=== PATIENT | female | born 1965 | race Caucasian/White ===

== ENCOUNTER → 2016-03-14 | Outpatient (CLI) | payer OTHER | END | disposition home or self-care (01) | LOC: NUC 06:39 | DX: R10.11 Right upper quadrant pain (principal) | CPT/HCPCS: 78227; A9537; J2805 ==

== ENCOUNTER 2016-10-05 13:24 | Emergency (ER) | payer OTHER ==
[~2016-10-05] VITALS: Ht 157.5 cm; Wt 74.4 kg
[2016-10-05 14:20] LABS: HEMATOCRIT 37.6 % (36.0-46.0); MCH 30.6 PG (29.0-34.0); MCHC 34.3 G/DL (30.0-36.0); MCV 89.1 FL (83-99); MEAN PLAT.VOLUME 10.9 uM^3 (9.5-12.4); PLATELET COUNT 318 K/uL (156-360); RBC DIS.WIDTH-CV 12.3 % (11.8-14.6); RBC DIS.WIDTH-SD 39.9 % (39-53); RED BLOOD COUNT 4.22 M/uL (3.80-5.20); WHITE BLOOD COUNT 7.5 K/uL (4.1-10.2)
[2016-10-05 14:32] LABS: CHLORIDE 104 mEq/L (99-109); POTASSIUM 4.1 mEq/L (3.7-5.4); SODIUM 138 mEq/L (136-147)
[2016-10-05 14:35] LABS: GLUCOSE 93 mg/dL (70-99)
[2016-10-05 14:36] LABS: ANION GAP 9 MEQ/L (2-14)
[2016-10-05 14:37] LABS: TOTAL BILIRUBIN 0.5 mg/dL (0.0-1.0)
[2016-10-05 14:38] LABS: ALKALINE PHOSPHATASE 57 IU/L (3-129); GFR ESTIMATE (CALCULATED) > 59 mL/min/
[2016-10-05 14:39] LABS: UREA NITROGEN (BUN) 8 mg/dL (9-23)
[2016-10-05 14:42] LABS: ADD MIUA? NO; BILIRUBIN NEGATIVE; BLOOD NEGATIVE; COLOR YELLOW ((YELLOW)); GLUCOSE (STRIP) NEGATIVE; KETONES 5; LEUKOCYTES NEGATIVE; NITRITE NEGATIVE; PROTEIN (STRIP) NEGATIVE; SPECIFIC GRAVITY 1.011 (1.000-1.030); UROBILINOGEN 0.2 MG/DL (0.2-1.0)
[2016-10-05 14:42] LABS: LIPASE 12 U/L (1.0-51.0)
[2016-10-05 14:48] LABS: QUANTITATIVE HCG < 4.0 MIU/ML
[2016-10-05] MEDS ORDERED: PERCOCET 5/31 TABLET PO (15:46)
[2016-10-05] MEDS ORDERED: ZOVIRAX800 M1 PO (15:46)
[2016-10-05 16:07] VITALS: BP 136/84
== END 2016-10-05 16:10 | disposition home or self-care (01) ==
LOC: EME 13:24
PROVIDERS: Nurse Practitioner Family
DX: B02.9 Zoster without complications (principal); R10.12 Left upper quadrant pain
CPT/HCPCS: 71020; 74177; 80053; 81003; 83690; 84702; 85027; 99281; 99284; J1885; J2405; J7030